=== PATIENT | male | born 1960 | race Caucasian/White ===

== ENCOUNTER → 2016-10-01 | Day surgery (SDC) | payer MEDICAID ==
--- NOTE | 2016-09-30 07:54 | MH ---
cc: EDGARD DE LA CRUZ DATE OF ADMISSION 10/01/2016 DATE OF 1960 CHIEF COMPLAINT Otitis HISTORY This is a 55-year-old male with a history of chronic otitis media. He has right serous otitis and conductive hearing loss. He is to undergo right myringotomy and T-tube. In addition he has debris in his previously operated left mastoid cavity. We have not been able to clear that in the office. Under general anesthesia, we will complete a left mastoid debridements. PAST MEDICAL HISTORY The past medical history is significant for chronic ear disease as above. ALLERGIES No known drug allergies. MEDICATIONS Medications include: 1. Ambien 2. Simvastatin PHYSICAL EXAM This is a well-developed, well-nourished male in no apparent distress. HEAD, EYES, EARS, NOSE, AND THROAT: Normocephalic, atraumatic. Extraocular motions intact. External ear canals clear. On the right, the right tympanic membrane is retracted with serous fluid. The left mastoid cavity shows debris. The lips, oral mucosa and pharynx show no lesion. NECK: Shows no masses. CHEST: Clear to auscultation. HEART: Regular rate. ABDOMEN: Soft. EXTREMITIES: No lesion. NEUROLOGIC: Exam is nonfocal. ASSESSMENT This is a 55-year-old male with a history of chronic otitis media who is to undergo right myringotomy and T-tube and a left mastoid debridement. The risks and benefits discussed with the patient The risks include, but are limited to those of anesthesia, bleeding, unfavorable scarring, TM perforation, early tube extrusion, tube retention requiring removal of tube, otorrhea requiring removal, cholesteatoma, hearing loss, ear bleeding. The patient states she understands and accepts the risks of the procedure. MD ELSY Stewart/JOYCE /7:47 AM 7:50 AM
[~2016-10-01] VITALS: Ht 177.8 cm; Wt 78.1 kg
[~2016-10-01] MED LIST: *morphine SULFATE 8 MG/ML PERIprocedure ONLY ONE; ACETAMINOPHEN 1000 MG/100 ML VIAL IV ONE; CHLORHEXIDINE GLUCONATE 2 % 1 PACK (2 CLOTHS) TOPICAL PRN; DO NOT ADM ANY ANTICOAGULANT DRUGS PRN; FAMOTIDINE 20 MG/2 ML VIAL ONE; IBUPROFEN 400 MG TAB PO PRN; INSULIN HUMAN REGULAR 1,000 UNITS/10 ML VIAL SQ PRN; LACTATED RINGER'S 1000 ML IV PRN; MELA5TAB15 PO; METOPROLOL TARTRATE 25 MG TAB PO PRN; MIDAZOLAM HCL 2 MG/2 ML VIAL ONE; MORPHINE SULFATE 4 MG/ML INJ IV PRN; OFLOXACIN 0.3% OPTH SOLN 5 ML BTL ONE; ONDANSETRON HCL 4 MG/2 ML VIAL IV PUSH ONE; POVIDONE IODINE 5% (ANTISEPSIS KIT) 4 APPLICATIONS EACH NARE PRN; PROPOFOL 200 MG/20 ML AMP IV ONE; SIMV40TA PO; SODIUM CHLORID 0.9% 500 ML IV PRN; VALP250C PO; ZOLP10TA3 PO; fentaNYL CITRATE 250 MCG/5 ML AMP ONE
[2016-10-01 07:15] VITALS: BP 150/99; PULSE 67; RESP 18; TEMP 98.3; O2SAT 96
[2016-10-01 07:55] LABS: AUTOMATED NEUTROPHIL # 3.6 TH/MM3 (1.8-7.7); BASOPHIL % 0.5 % (0.0-2.0); EOSINOPHIL # 0.3 TH/MM3 (0-0.4); EOSINOPHIL % 3.8 % (0.0-4.0); HEMATOCRIT 40.3 % (39.0-51.0); HEMO FLAGS DIFF FINAL; LYMPH % 30.4 % (9.0-44.0); MEAN CELL VOLUME 94.7 FL (80.0-100.0); MEAN CORPUSCULAR HEMOGLOBIN 32.8 PG (27.0-34.0); MEAN CORPUSCULAR HGB CONC 34.6 % (32.0-36.0); MONO % 10.6 % (0.0-8.0); NEUT % 54.7 % (16.0-70.0); PLATELET COUNT 178 TH/MM3 (150-450); RED BLOOD COUNT 4.25 MIL/MM3 (4.50-5.90); RED CELL DISTRIBUTION WIDTH 13.1 % (11.6-17.2); WHITE BLOOD COUNT 6.7 TH/MM3 (4.0-11.0)
--- NOTE | 2016-10-01 08:15 | MP ---
cc: EDGARD DE LA CRUZ M.D. DATE OF SURGERY: 10/01/2016 DATE OF : 1960 INDICATIONS This 55-year-old male presents with chronic otitis media. Jared has had a previous left mastoid. He has debris in the side that had not been removed in the office. We are to complete left mastoid debridement under anesthesia. In addition he has right serous otitis and conductive hearing loss, and will plan a right myringotomy and T-tube under general anesthesia. PREOPERATIVE DIAGNOSIS 1. Chronic otitis media. 2. Chronic mastoiditis. POSTOPERATIVE DIAGNOSIS 1. Chronic otitis media. 2. Chronic mastoiditis. PROCEDURE 1. Myringotomy and T-tube under general anesthesia. 2. Debridement of left mastoid under general anesthesia. SUMMARY The patient was brought into the operating room and placed in supine position, successfully placed under general anesthesia and prepared in the usual fashion for this procedure. The right ear was examined under the microscope and cleared of debris. A myringotomy incision was made anterior and inferiorly. Serous fluid was suctioned from the middle ear and a T-tube was placed without complication. Ofloxacin drops were applied. Attention was turned to the left mastoid. The patient was examined under the microscope. There was debris throughout the mastoid cavity. It was dry. There was no acute infection. Ceruminous and epidermoid debris was present. The debris was removed with suction forceps. There was no bacterial odor. He tolerated this well. The patient was then awakened and taken to Recovery in stable condition. MD ELSY Stewart/DINA /8:03 AM /8:08 AM JULES
[2016-10-01 10:10] VITALS: BP 136/89; PULSE 63; RESP 20; TEMP 97.2; O2SAT 98
--- NOTE | 2016-10-01 19:25 | EKG ---
Date Performed: 10/01/2016 Time Performed: 07:11:30 PTAGE: 55 years EKG: Sinus rhythm NONSPECIFIC T-WAVE ABNORMALITY BORDERLINE ECG PREVIOUS TRACING : 03/29/2014 10.23 Compared to prior tracing no significant change DOCTOR: Corin Gutierrez Interpretating Date/Time 10/01/2016 19:23:19
== END | disposition home or self-care (01) ==
LOC: HSDC 06:29
PROVIDERS: ATTEND Specialist
DX: H65.21 Chronic serous otitis media, right ear (principal); H70.12 Chronic mastoiditis, left ear; H90.2 Conductive hearing loss, unspecified; E78.5 Hyperlipidemia, unspecified; F31.9 Bipolar disorder, unspecified; F43.10 Post-traumatic stress disorder, unspecified; F17.200 Nicotine dependence, unspecified, uncomplicated; Z01.810 Encounter for preprocedural cardiovascular examination
CPT/HCPCS: 00124; 69205; 69436; 85025; 93005; J0131; J2250; J2270; J2405; J7120; J3010